=== PATIENT | male | born 1945 | race Caucasian/White ===

== ENCOUNTER 2021-06-04 20:09 | Inpatient (IN) | payer BC, MEDICARE ==
[~2021-06-04] VITALS: Ht 172.7 cm; Wt 84.0 kg
[2021-06-04] MEDS ORDERED: VANCOMYCIN 1G PREMIX 200 ML IV ONE (21:00)
[2021-06-04] MEDS ORDERED: PIPERACILLIN/TAZ 3.375G PREMIX 50 ML IV ONE (21:00)
[2021-06-04 21:28] LABS: BASOPHILS % 0.3 % (0.0-2.0); EOSINOPHILS % 0.3 % (0.0-5.0); HEMATOCRIT. 38.5 % (42.0-52.0); HEMOGLOBIN. 12.3 g/dL (14.0-18.0); LYMPHOCYTES % 22.3 % (20.0-50.0); MEAN CORPUSCULAR HEMOGLOBIN 34.3 pg (28.0-32.0); MEAN CORPUSCULAR VOLUME 107.3 fL (80.0-94.0); MONOCYTES % 14.4 % (2.0-8.0); NEUTROPHILS % 62.7 % (40.0-76.0); PLATELET 123 x1000/uL (130-400); RED BLOOD CELL COUNT 3.58 mill/uL (4.7-6.1); RED CELL DISTRIBUTION WIDTH 15.5 % (11.6-14.6)
[2021-06-04 21:30] LABS: CHLORIDE 107 mEq/L (98-107)
[2021-06-04 21:31] LABS: BG BASE EXCESS -2.5 mmol/L (-2.0-2.0); BG CARBOXYHEMOGLOBIN 0.3 % (0.5-1.5); BG DEOXYHEMOGLOBIN 2.1 % (0.0-5.0); BG FRACTION INSPIRED OXYGEN 28; BG HCO3 ACT 21.5 mmol/L (22.0-26.0); BG METHEMOGLOBIN 0.3 % (0.0-1.5); BG OXYGEN SATURATION 97.9 % (92.0-98.5); BG OXYHEMOGLOBIN 97.3 % (94.0-97.0); BG PCO2 34.7 mmHg (35.0-45.0); BG VENT MODE NASAL CANNULA
[2021-06-05] MEDS ORDERED: ONDANSETRON HCL 4MG/2ML INJ IV PRN (00:30)
[2021-06-05] MEDS ORDERED: IPRATROPIUM/ALBUTEROL 0.5-3(2.5)MG/3ML NEB NEB PRN (00:30)
[2021-06-05] MEDS ORDERED: DOCUSATE SODIUM 100MG CAPSULE PO PRN (00:30)
[2021-06-05] MEDS ORDERED: MAGNESIUM/ALUMINUM HYDROXIDE/SIMETHICONE 30ML UDC PO PRN (00:30)
[2021-06-05] MEDS ORDERED: CLONIDINE 0.1MG TABLET PO PRN (00:30)
[2021-06-05] MEDS ORDERED: GUAIFENESIN 200MG/10ML SUGAR FREE UDC PO PRN (00:30)
[2021-06-05] MEDS ORDERED: PIPERACILLIN/TAZOBACTAM 3.375 G in DEXTROSE 5% WATER 50 ML IV SCH (00:30)
[2021-06-05] MEDS ORDERED: ACETAMINOPHEN 325MG TABLET PO PRN (00:30)
[2021-06-05] MEDS: SODIUM CHLORIDE 0.9% 1,000 ML IV SCH ×2 (00:43→13:50)
[2021-06-05] MEDS ORDERED: PIPERACILLIN/TAZOBACTAM 3.375G in DEXT 5% WATER 50ML IV SCH (01:00)
[2021-06-05 01:23] LABS: HEPATITIS B SURFACE ANTIGEN NEGATIVE
[2021-06-05 02:43] LABS: VITAMIN B12 SERUM 654 pg/mL (211-911)
[2021-06-05 04:37] LABS: FOLIC ACID (FOLATE) SERUM > 20.00 ng/mL (>5.38)
[2021-06-05 06:14] LABS: BASOPHILS % 0.6 % (0.0-2.0); EOSINOPHILS % 0.1 % (0.0-5.0); HEMATOCRIT. 34.6 % (42.0-52.0); LYMPHOCYTES % 29.4 % (20.0-50.0); MEAN CORPUSCULAR HEMOGLOBIN 33.8 pg (28.0-32.0); MEAN PLATELET VOLUME 9.2 fl (7.4-10.4); MONOCYTES % 14.7 % (2.0-8.0); NEUTROPHILS % 55.2 % (40.0-76.0); PLATELET 129 x1000/uL (130-400); RED BLOOD CELL COUNT 3.26 mill/uL (4.7-6.1); RED CELL DISTRIBUTION WIDTH 15.4 % (11.6-14.6)
[2021-06-05 06:31] LABS: CREATINE KINASE MB FRACTION 18.2 ng/mL (0.5-3.6)
[2021-06-05] MEDS: PIPERACILLIN/TAZ 3.375G PREMIX 50 ML IV SCH ×3 (06:49→22:26)
[2021-06-05 16:43] LABS: CLARITY URINE CLEAR (CLEAR); COLOR URINE YELLOW (YELLOW); KETONES URINE NEGATIVE (NEGATIVE); LEUKOCYTE ESTERASE URINE NEGATIVE (NEGATIVE); NITRITE URINE NEGATIVE (NEGATIVE); OCCULT BLOOD URINE TRACE (NEGATIVE); PH URINE 5.5 (4.5-8.0); PROTEIN URINE TRACE (NEGATIVE); SPECIFIC GRAVITY URINE 1.015 (1.005-1.030); UROBILINOGEN URINE 0.2 E.U./dL (0.2-1.0)
[2021-06-05] MEDS: APIXABAN 5 MG TABLET PO SCH (19:40)
[2021-06-06] MEDS: SODIUM CHLORIDE 0.9% 1,000 ML IV SCH ×2 (03:51→16:30)
[2021-06-06] MEDS: PIPERACILLIN/TAZ 3.375G PREMIX 50 ML IV SCH ×3 (05:45→22:53)
[2021-06-06 05:51] LABS: BASOPHILS % 0.4 % (0.0-2.0); EOSINOPHILS % 1.6 % (0.0-5.0); HEMATOCRIT. 36.1 % (42.0-52.0); HEMOGLOBIN. 11.6 g/dL (14.0-18.0); LYMPHOCYTES % 28.3 % (20.0-50.0); MEAN CORPUSCULAR HEMOGLOBIN 34.2 pg (28.0-32.0); MEAN CORPUSCULAR VOLUME 106.5 fL (80.0-94.0); MONOCYTES % 14.5 % (2.0-8.0); NEUTROPHILS % 55.2 % (40.0-76.0); PLATELET 133 x1000/uL (130-400); RED BLOOD CELL COUNT 3.39 mill/uL (4.7-6.1); RED CELL DISTRIBUTION WIDTH 15.3 % (11.6-14.6)
[2021-06-06 06:10] LABS: PHOSPHORUS 2.1 mg/dL (2.5-4.9)
[2021-06-06 08:55] LABS: CREATINE KINASE MB FRACTION 8.4 ng/mL (0.5-3.6)
[2021-06-06] MEDS: APIXABAN 5 MG TABLET PO SCH ×2 (09:00→22:54)
[2021-06-07] MEDS: SODIUM CHLORIDE 0.9% 1,000 ML IV SCH (06:09)
[2021-06-07] MEDS: PIPERACILLIN/TAZ 3.375G PREMIX 50 ML IV SCH (06:50)
[2021-06-07 07:08] LABS: HEMATOCRIT. 33.8 % (42.0-52.0); HEMOGLOBIN. 11.1 g/dL (14.0-18.0); MEAN CORPUSCULAR HEMOGLOBIN 34.9 pg (28.0-32.0); MEAN CORPUSCULAR VOLUME 106.3 fL (80.0-94.0); MEAN PLATELET VOLUME 8.7 fl (7.4-10.4); PLATELET 128 x1000/uL (130-400); RED BLOOD CELL COUNT 3.18 mill/uL (4.7-6.1)
[2021-06-07 07:10] LABS: CHLORIDE 113 mEq/L (98-107)
[2021-06-07] MEDS ORDERED: APIX5TAB PO (10:11)
[2021-06-07 10:40] VITALS: BP 119/62
[2021-06-07 15:13] LABS: PLATELET ESTIMATE NORMAL
== END 2021-06-07 11:02 | disposition home or self-care (01) | DRG 871 ==
LOC: ER 20:09 → MICUSO 06-05 00:07
PROVIDERS: ADMIT Internal Medicine; ATTEND Internal Medicine
DX: A41.9 Sepsis, unspecified organism (principal); U07.1 COVID-19; N17.9 Acute kidney failure, unspecified; I48.91 Unspecified atrial fibrillation; N18.9 Chronic kidney disease, unspecified; D64.9 Anemia, unspecified; D69.6 Thrombocytopenia, unspecified; J44.9 Chronic obstructive pulmonary disease, unspecified; E78.5 Hyperlipidemia, unspecified; I12.9 Hypertensive chronic kidney disease with stage 1 through stage 4 chronic kidney disease, or unspecified chronic kidney disease; Z87.891 Personal history of nicotine dependence; Z79.01 Long term (current) use of anticoagulants; Z82.49 Family history of ischemic heart disease and other diseases of the circulatory system; Z90.49 Acquired absence of other specified parts of digestive tract
CPT/HCPCS: 36415; 36600; 71045; 76770; 80048; 80053; 80061; 81003; 82375; 82550; 82553; 82607; 82746; 82805; 83036; 83605; 83735; 84100; 84145; 84484; 85025; 86705; 86709; 86803; 87340; 87426; 87804; 93005; 93970; 99285; J2543; J3370; J7060